=== PATIENT | male | born 1980 | race Caucasian/White ===

== ENCOUNTER 2020-11-24 04:24 | Emergency (ER) | payer BC ==
[2020-11-24] MEDS ORDERED: Ketorolac 15 MG/ML SDV IVPUSH ONE (05:07)
[2020-11-24] MEDS ORDERED: Sodium Chloride 0.9% 2.5 ML Syringe FLUSH PRN (05:07)
[2020-11-24] MEDS ORDERED: Sodium Chloride 0.9% 10 ML Syringe FLUSH PRN (05:07)
--- NOTE | 2020-11-24 05:17 | EDM.PDOC ---
<Cuba Wetzel - Last Filed: 11/24/20 06:47> ED HPI GENERAL MEDICAL PROBLEM - General Chief Complaint: Abdominal Pain Stated Complaint: BACK PAIN, ABDOMINAL PAIN, BLOOD IN URINE Time Seen by Provider: 11/24/20 04:25 - History of Present Illness INITIAL COMMENTS - FREE TEXT/NARRATIVE: 40-year-old male with history of kidney stones in the past presenting with acute onset of severe right lower quadrant abdominal pain radiating into the right testicle in the right flank that started around 9 PM yesterday. He he took ibuprofen with minimal relief he vomited up his breakfast when the pain started. It is associated with a sensation that he needs to urinate but is unable to and is associated with hematuria. He says he has been drinking water but has not had any significant urine output. He states that he has not done well with narcotics in the past but he is only allergic to erythromycin. No diarrhea no fever. Right Flank Pain Score (Numeric/FACES): 10 - Related Data Allergies Allergy/AdvReac Type Severity Reaction Status Date / Time erythromycin base Allergy Vomiting Verified 11/24/20 05:00 Home Meds: Home Meds Acetaminophen/oxyCODONE [Percocet 325-5 MG] 1 each PO Q6H PRN #9 tab 11/24/20 [Rx] Ibuprofen [Motrin] 600 mg PO Q6H PRN #20 tab 11/24/20 [Rx] Omeprazole 20 mg PO DAILY 11/24/20 [History] Past Medical History Gastrointestinal History: Reports: GERD - Infectious Disease History Infectious Disease History: Reports: Chicken Pox Social & Family History - Recreational Drug Use Recreational Drug Use: No ED ROS GENERAL - Review of Systems Review Of Systems: See Below Free Text/Narrative/Comment: General: No fever. Skin: No rash. Eyes: No vision problems. ENT: No sore throat. Neck: No neck stiffness. Respiratory: No shortness of breath. Cardiac: No chest pain. Gastrointestinal: Per HPI Urinary: Per HPI Musculoskeletal: No myalgias/arthralgias. Neurologic: No headache. ED EXAM, GENERAL - Physical Exam Exam: See Below Free Text/Narrative:: General Appearance: Nontoxic in appearance but uncomfortable Skin: No rash HEENT: Normocephalic/atraumatic, sclera anicteric, mucous membranes moist Neck: Normal range of motion Chest and Lungs: Bilateral breath sounds, clear to auscultation Cardiovascular: Regular rate and rhythm, no murmur Abdomen: Soft, non-tender Back: Normal Musculoskeletal: No edema or tenderness Neurologic: Awake, alert, no obvious deficits, moving all extremities Psychiatric: Appropriate, cooperative Departure - Departure Disposition: Home, Self-Care 01 Condition: Good Clinical Impression: Renal colic on right side - Discharge Information *PRESCRIPTION DRUG MONITORING PROGRAM REVIEWED*: Not Applicable *COPY OF PRESCRIPTION DRUG MONITORING REPORT IN PATIENT LIBRADO: Not Applicable Prescriptions: Ibuprofen [Motrin] 600 mg PO Q6H PRN #20 tab PRN Reason: Pain Acetaminophen/oxyCODONE [Percocet 325-5 MG] 1 each PO Q6H PRN #9 tab PRN Reason: Pain Instructions: Renal Colic, [id number] Referrals: PCP,Not In Area [Primary Care Provider] - Forms: ED Department Discharge Additional Instructions: Your CT scan today showed a 1 mm kidney stone just about to fall from your ureter into your bladder. This is the smallest opening through which has the past and I am very optimistic that you will be able to pass this spontaneously over the course of the next few hours or days if you have not already passed it. You can use ibuprofen for additional pain if needed I recommend taking 600 mg with food up to 3 times daily. I encourage you to follow-up with your primary care doctor or urologist when you get home to [place]. The following information is given to patients seen in the emergency department who are being discharged to home. This information is to outline your options for follow-up care. We provide all patients seen in our emergency department with a follow-up referral. The need for follow-up, as well as the timing and circumstances, are variable depending upon the specifics of your emergency department visit. If you don't have a primary care physician on staff, we will provide you with a referral. We always advise you to contact your personal physician following an emergency department visit to inform them of the circumstance of the visit and for follow-up with them and/or the need for any referrals to a consulting specialist. The emergency department will also refer you to a specialist when appropriate. This referral assures that you have the opportunity for follow-up care with a specialist. All of these measure are taken in an effort to provide you with optimal care, which includes your follow-up. Under all circumstances we always encourage you to contact your private physician who remains a resource for coordinating your care. When calling for follow-up care, please make the office aware that this follow-up is from your recent emergency room visit. If for any reason you are refused follow-up, please contact the [facility] Emergency Department at and asked to speak to the emergency department charge nurse. - Assessment/Plan Assessment:: 40-year-old male present with signs and symptoms that are most consistent with renal colic appendicitis considered felt less likely given radiation pattern but also possibility testicular torsion considered as well also felt less likely but possible. CBC CMP urinalysis CT scan ordered Toradol for symptoms and will reassess if this evaluation does not reveal a cause then could consider testicular ultrasound at that time. 0600: CT has a 1 mm right-sided UVJ stone which I believe is the source of his pain. On reassessment the patient is feeling much better he has some very minimal discomfort but the majority of his pain is resolved. This could be either secondary to Toradol or passage of the stone. On bladder scan he has at most 70 to 100 mL in his bladder. Thus I think is uncomfortable bladder sensation was related to a combination of the stone and bladder spasm. We will encourage liquid p.o. intake and await collection of urine and results of blood work. I am optimistic for spontaneous passage of the stone patient will be able to follow-up with urology at home in [place] if needed. 0700: We continue to await urinalysis result. Patient signed out to day time provider pending this and final disposition. <Jimy Jaquez - Last Filed: 11/24/20 07:30> Course - Vital Signs Last Recorded V/S: Last Vital Signs Temp 98.2 F 11/24/20 04:55 Pulse 85 11/24/20 04:55 Resp 10 L 11/24/20 04:55 BP 137/92 H 11/24/20 04:55 Pulse Ox 99 11/24/20 04:55 - Orders/Labs/Meds Orders: Active Orders 24 hr Category Date Time Status URINALYSIS W/MICROSCOPIC [UA W/MICROSCOPIC] [URIN] Stat Lab 11/24/20 07:15 Results Sodium Chloride 0.9% [Saline Flush] Med 11/24/20 05:07 Active 10 ml FLUSH ASDIRECTED PRN Sodium Chloride 0.9% [Saline Flush] Med 11/24/20 05:07 Active 2.5 ml FLUSH ASDIRECTED PRN Saline Lock Insert [OM.PC] Stat Oth 11/24/20 05:07 Ordered Medication Orders Sodium Chloride (Sodium Chloride 0.9% 10 Ml Syringe) 10 ml FLUSH ASDIRECTED PRN PRN Reason: Keep Vein Open Last Admin: 11/24/20 05:28 Dose: 10 ml Documented by: RENZO Sodium Chloride (Sodium Chloride 0.9% 2.5 Ml Syringe) 2.5 ml FLUSH ASDIRECTED PRN PRN Reason: Keep Vein Open Last Admin: 11/24/20 05:27 Dose: 2.5 ml Documented by: RENZO Labs: Laboratory Tests 11/24/20 11/24/20 11/24/20 Range/Units 05:00 05:00 07:15 WBC 11.61 H (4.0-11.0) K/uL RBC 4.72 (4.50-5.90) M/uL Hgb 15.8 (13.0-17.0) g/dL Hct 43.8 (38.0-50.0) % MCV 92.8 (80.0-98.0) fL MCH 33.5 H (27.0-32.0) pg MCHC 36.1 (31.0-37.0) g/dL RDW Std Deviation 41.2 (28.0-62.0) fl RDW Coeff of Cong 12 (11.0-15.0) % Plt Count 278 (150-400) K/uL MPV 9.40 (7.40-12.00) fL Neut % (Auto) 78.0 (48.0-80.0) % Lymph % (Auto) 11.8 L (16.0-40.0) % [place] % (Auto) 9.7 (0.0-15.0) % Eos % (Auto) 0.3 (0.0-7.0) % Baso % (Auto) 0.2 (0.0-1.5) % Neut # (Auto) 9.1 H (1.4-5.7) K/uL Lymph # (Auto) 1.4 (0.6-2.4) K/uL [place] # (Auto) 1.1 H (0.0-0.8) K/uL Eos # (Auto) 0.0 (0.0-0.7) K/uL Baso # (Auto) 0.0 (0.0-0.1) K/uL Nucleated RBC % 0.0 /100WBC Nucleated RBCs # 0 K/uL Sodium 138 (136-148) mmol/L Potassium 3.9 (3.5-5.1) mmol/L Chloride 101 (98-107) mmol/L Carbon Dioxide 21.8 (21.0-32.0) mmol/L BUN 12 (7.0-18.0) mg/dL Creatinine 1.2 (0.8-1.3) mg/dL Est Cr Clr Drug Dosing TNP Estimated GFR (MDRD) > 60.0 ml/min Glucose 86 (74-106) mg/dL Calcium 8.2 L (8.5-10.1) mg/dL Total Bilirubin 0.5 (0.2-1.0) mg/dL AST 21 (15-37) IU/L ALT 25 (14-63) IU/L Alkaline Phosphatase 76 (46-116) U/L Total Protein 7.2 (6.4-8.2) g/dL Albumin 4.1 (3.4-5.0) g/dL Globulin 3.1 (2.6-4.0) g/dL Albumin/Globulin Ratio 1.3 (0.9-1.6) Urine Color YELLOW Urine Appearance CLOUDY Urine pH 5.5 (5.0-8.0) Ur Specific [place] 1.025 (1.001-1.035) Urine Protein NEGATIVE (NEGATIVE) mg/dL Urine Glucose (UA) NEGATIVE (NEGATIVE) mg/dL Urine Ketones 15 H (NEGATIVE) mg/dL Urine Occult Blood LARGE H (NEGATIVE) Urine Nitrite NEGATIVE (NEGATIVE) Urine Bilirubin NEGATIVE (NEGATIVE) Urine Urobilinogen 0.2 (<2.0) EU/dL Ur Leukocyte Esterase NEGATIVE (NEGATIVE) Meds: Medications Generic Name Dose Route Start Last Admin Trade Name Freq PRN Reason Stop Dose Admin Sodium Chloride 10 ml 11/24/20 05:07 11/24/20 05:28 Sodium Chloride 0.9% 10 Ml Syringe FLUSH 10 ml ASDIRECTED PRN Administration Keep Vein Open Sodium Chloride 2.5 ml 11/24/20 05:07 11/24/20 05:27 Sodium Chloride 0.9% 2.5 Ml Syringe FLUSH 2.5 ml ASDIRECTED PRN Administration Keep Vein Open Discontinued Medications Generic Name Dose Route Start Last Admin Trade Name Elmer PRN Reason Stop Dose Admin Ketorolac Tromethamine 15 mg 11/24/20 05:07 11/24/20 05:12 Ketorolac 15 Mg/Ml Sdv IVPUSH 11/24/20 05:08 15 mg ONETIME ONE Administration - Re-Assessments/Exams Free Text/Narrative Re-Assessment/Exam: 11/24/20 07:29 UA is unremarkable aside from blood. Will discharge patient with short course of analgesia and follow-up PMD and urology. Patient is visiting from out of town so I instructed him to follow-up with his primary care physician and if he would like a urology referral his PMD can give him that referral. Return precautions were discussed at length. Patient is comfortable at time of discharge. Departure - Departure Time of Disposition: 07:29 Sepsis Event Note (ED) - Focused Exam Vital Signs: Vital Signs Temp Pulse Resp BP Pulse Ox 11/24/20 04:55 98.2 F 85 10 L 137/92 H 99
[2020-11-24 05:50] LABS: BLOOD UREA NITROGEN,BUN 12 mg/dL (7.0-18.0); CARBON DIOXIDE,CO2 21.8 mmol/L (21.0-32.0); CHLORIDE,CL 101 mmol/L (98-107); GLUCOSE RANDOM 86 mg/dL (74-106); POTASSIUM,K 3.9 mmol/L (3.5-5.1); SODIUM,NA 138 mmol/L (136-148)
--- NOTE | 2020-11-24 05:54 | CT ---
INDICATION: Right lower quadrant abdomen and flank pain. TECHNIQUE: CT abdomen and pelvis without contrast. COMPARISON: None. FINDINGS: Lower chest: Unremarkable. Liver: Normal in size and attenuation. No suspicious masses. Gallbladder and bile ducts: No stones or inflammation. No biliary dilatation. Pancreas: Unremarkable. No mass or inflammation. Spleen: Normal in size. No masses. Adrenal glands: Normal in size. No nodules. Kidneys: Tiny 1 mm stone at the right ureteral vesicle junction is causing mild hydronephrosis. No other stones. GI tract: Unremarkable. Normal in caliber. No sign of mass or inflammation. Post appendectomy. Vasculature: Unremarkable. Lymph nodes: No lymphadenopathy. Abdominal wall/Omentum/Peritoneum: Unremarkable. No sign of mass or infiltration. No free air or significant free fluid. Pelvis: Unremarkable. No pelvic masses. Bones: Unremarkable for age. IMPRESSION: Small 1 mm stone at the right UVJ causing mild hydronephrosis. Please note that all CT scans at this facility use dose modulation, iterative reconstruction, and/or weight-based dosing when appropriate to reduce radiation dose to as low as reasonably achievable. Dictated by Nico Patel MD @ 11/24/2020 5:52:[address] Nico Patel @ Nov 24 2020 5:52AM
== END 2020-11-24 07:45 | disposition home or self-care (01) ==
LOC: MW.ED 04:24
DX: N13.2 Hydronephrosis with renal and ureteral calculous obstruction (principal); K21.9 Gastro-esophageal reflux disease without esophagitis; Z88.1 Allergy status to other antibiotic agents; Z79.899 Other long term (current) drug therapy
CPT/HCPCS: 36415; 74176; 80053; 81001; 85025; 96374; 99284; J1885